=== PATIENT | female | born 1980 ===

== ENCOUNTER 2024-09-08 08:45 | Outpatient (RCR) | payer OTHER, SELFPAY ==
--- NOTE | 2024-09-11 11:19 | HO.PHP ---
Pt was unable to attend the day after her intake requesting to come to program 45 minutes late in which staff stated this is not allowed due to attendance being completed for the day at that point. She stated she would be coming to program on Saturday. She did not show on Saturday stating that she needed to go to court to place a restraining order that needs to be done this week. She apologized, and she shared that she thought she would have had everything in order. This typewriter repairer suggested she call [employer] back at a later time that better fits her schedule. This appeared receptive.
== END 2024-09-08 23:59 | disposition home or self-care (01) ==
LOC: HO.PHPA 08:45
PROVIDERS: Visit Provider Psychiatry & Neurology Psychiatry
DX: F33.2 Major depressive disorder, recurrent severe without psychotic features (principal); F43.9 Reaction to severe stress, unspecified; F41.1 Generalized anxiety disorder
CPT/HCPCS: 90791